=== PATIENT | female | born 1985 | race Caucasian/White ===

== ENCOUNTER 2020-11-30 15:14 | Outpatient (REF) | payer MEDICARE, MEDICAID, SELFPAY | END 2020-11-30 15:15 | disposition home or self-care (01) | LOC: HO.HAP 15:14 | PROVIDERS: Visit Provider Hospitalist | DX: Z13.89 Encounter for screening for other disorder (principal) ==

== ENCOUNTER 2020-12-29 09:18 | Outpatient (REF) | payer MEDICARE, MEDICAID, SELFPAY | END 2020-12-29 09:19 | disposition home or self-care (01) | LOC: HO.HAP 09:18 | PROVIDERS: Visit Provider Hospitalist | DX: Z13.89 Encounter for screening for other disorder (principal) ==

== ENCOUNTER 2021-02-03 12:59 | Outpatient (REF) | payer MEDICARE, MEDICAID, SELFPAY | END 2021-02-03 13:00 | disposition home or self-care (01) | LOC: HO.HAP 12:59 | PROVIDERS: Visit Provider Hospitalist | DX: Z13.89 Encounter for screening for other disorder (principal) ==